=== PATIENT | male | born 1980 | race Caucasian/White ===

== ENCOUNTER 2025-06-16 20:23 | Emergency (ER) | payer MEDICARE, SELFPAY ==
[2025-06-16 20:39] VITALS: BP 97/57; PULSE 75; TEMP 36.6; O2SAT 98; BMI 30.3
--- NOTE | 2025-06-17 06:53 | ED.GENADUL1 ---
HPI HPI - General Adult General Chief complaint: Abdominal Pain Stated complaint: ABDOMINAL PAIN Time Seen by Provider: 06/16/25 22:42 Source: patient Mode of arrival: walk-in Limitations: no limitations History of Present Illness HPI narrative: Patient is a 44-year-old male with no significant medical history presenting to the emergency department with years of constipation. He states that he has had a change in his bowel movements recently, and is looking for a second opinion. States he had a normal colonoscopy a few years ago. He states he feels constipated though he is having adequate bowel movements. His last bowel movement was a few hours ago. He denies any nausea or vomiting. He is still tolerating PO. He has no abdominal pain. No fevers or chills. No recent weight loss. No chest pain or shortness of breath. No dysuria. He has no systemic symptoms otherwise. He states he drinks minimal water daily and little to no fiber. Related Data Home Medications ?Medication ?Instructions ?Recorded ?Confirmed No Known Home Medications 06/16/25 06/16/25 Allergies Allergy/AdvReac Type Severity Reaction Status Date / Time No Known Drug Allergies Allergy Verified 06/16/25 20:46 Opioid HPI Opioid Management Most Recent Opioid Data: Last Pain Scale 5 06/16/25, 20:39 Review of Systems ROS Status of ROS 10 or more systems reviewed and unremarkable except as noted in history and below PFSH PFSH Social History Little interest or pleasure in doing things: not at all Feeling down, depressed, or hopeless: not at all Exam Narrative Exam Narrative: CONSTITUTIONAL: [well-appearing, answering questions and following commands appropriately] SKIN: [was warm and dry]. EYES: Sclerae white. EARS, NOSE, THROAT: Moist oral mucosa. RESPIRATORY: [Clear to auscultation bilaterally, no wheezes, crackles, or stridor, no use of accessory muscles] CARDIOVASCULAR: [Normal rate and regular rhythm. There is no S3, S4, murmur, rub.] GASTROINTESTINAL: Abdomen soft, nontender, nondistended. Normal bowel sounds. No rebound tenderness or guarding. MUSCULOSKELETAL: No peripheral edema. NEUROLOGIC: [Patient is awake and alert. Facies were symmetrical.] Constitutional Vital Signs, click to edit/add: Last Vital Signs Temp 98 F 06/16/25 20:39 Pulse 75 06/16/25 20:39 Resp 16 06/16/25 20:39 BP 97/57 06/16/25 20:39 Pulse Ox 98 06/16/25 20:39 O2 Del Method Room Air 06/16/25 20:39 Course Vital Signs Vital signs: Vital Signs Temperature 98 F 06/16/25 20:39 Pulse Rate 75 06/16/25 20:39 Respiratory Rate 16 06/16/25 20:39 Blood Pressure 97/57 06/16/25 20:39 Pulse Oximetry 98 06/16/25 20:39 Oxygen Delivery Method Room Air 06/16/25 20:39 Temperature 98 F 06/16/25 20:39 Pulse Rate 75 06/16/25 20:39 Respiratory Rate 16 06/16/25 20:39 Blood Pressure 97/57 06/16/25 20:39 Pulse Oximetry 98 06/16/25 20:39 Oxygen Delivery Method Room Air 06/16/25 20:39 Medical Decision Making MDM Narrative Medical decision making narrative: Patient is a 44-year-old male presenting to the emergency department for a second opinion of chronic constipation/change in his bowel habits. His vital signs are within normal limits. He is afebrile and hemodynamic stable. He has a normal physical examination. His abdomen is soft, nontender, nondistended, with normal bowel sounds. He appears well-nourished and well-hydrated. He has no other systemic symptoms. It is unclear as to the exact etiology behind the patient's nonspecific bowel habit complaints. However, I do not believe there is any emergent pathology occurring at this time. He had a normal colonoscopy only few years ago, making colon cancer of low likelihood. He has no clinical signs or symptoms of bowel obstruction or other acute intra-abdominal pathologies. He is tolerating p.o. appropriately. I do not believe any diagnostic testing is indicated on an emergent basis at this time. I do believe the patient is stable for discharge at this time. They were instructed to follow up with his PCP for further care. He was instructed to maintain a high-fiber diet and drink plenty of water. Return precautions were given including any new or worsening symptoms, including inability to tolerate p.o., vomiting, or severe constipation. Patient understands and agrees to the plan. Differential Diagnosis Differential Diagnosis: Constipation, IBS Discharge Plan Discharge Chief Complaint: Abdominal Pain Clinical Impression: Constipation Patient Disposition: Home, Self-Care Time of Disposition Decision: 22:49 Condition: Good Mode of Transportation: Private Vehicle Prescriptions / Home Meds: No Action No Known Home Medications Print Language: Nepali Instructions: Constipation (ED), High Fiber Diet (ED) Referrals: REVA MCBRIDE [Physician, Gastroenterology] - 1 week Physician,Non-Staff, [Primary Care Provider] - 1 week Discharge Date/Time: 06/16/25 22:58
== END 2025-06-16 22:58 | disposition home or self-care (01) ==
PROVIDERS: Emergency Provider Student in an Organized Health Care Education/Training Program
DX: K59.00 Constipation, unspecified (principal)
CPT/HCPCS: 99281